=== PATIENT | female | born 1950 | race African-American/Black ===

== ENCOUNTER 2017-11-21 15:10 | Emergency (ER) | payer OTHER ==
--- NOTE | 2017-11-21 15:16 | PDOC ---
Rapid Medical Evaluation Time Seen by Provider: 11/21/17 15:15 Medical Evaluation: Allergies Allergy/AdvReac Type Severity Reaction Status Date / Time No Known Allergies Allergy Verified 11/21/17 15:14 11/21/17 15:15 The patient presents with a chief complaint of: arm/chest pain I have performed a brief in-person evaluation of this patient. Pertinent physical exam findings: vss I have ordered the following: ekg, labs The patient will proceed to the ED for further evaluation.
[2017-11-21 15:17] VITALS: TEMP 97.9; BMI 32.8
[2017-11-21] MEDS ORDERED: IBUPROFEN 400 MG TABLET (FP) PO ONE ×2 (16:05→16:23)
--- NOTE | 2017-11-21 16:18 | PDOC ---
History of Present Illness - General Chief Complaint: Pain Stated Complaint: SOB/PAIN LT ARM Time Seen by Provider: 11/21/17 15:15 History Source: Patient - History of Present Illness Associated Symptoms: denies: chest pain, diaphoresis, fever/chills Past History - Past Medical History Allergies/Adverse Reactions: Allergies Allergy/AdvReac Type Severity Reaction Status Date / Time No Known Allergies Allergy Verified 11/21/17 15:14 Home Medications: Ambulatory Orders Naproxen 500 mg PO BID #20 tablet 11/21/17 COPD: No Diabetes: Yes HTN: Yes Hypercholesterolemia: Yes - Immunization History Immunization Up to Date: Yes - Suicide/Smoking/Psychosocial Hx Smoking History: Never smoked Hx Alcohol Use: No Review of Systems - Review of Systems Constitutional: No: Chills, Fever Cardiac (ROS): No: Chest Pain, Lightheadedness ABD/GI: No: Nausea, Vomiting Musculoskeletal: Yes: Joint Pain, Joint Swelling *Physical Exam - Vital Signs Last Vital Signs Temp Pulse Resp BP Pulse Ox 97.9 F 110 H 18 127/69 98 11/21/17 15:14 11/21/17 15:14 11/21/17 15:14 11/21/17 15:14 11/21/17 15:14 - Physical Exam General Appearance: Yes: Appropriately Dressed. No: Apparent Distress HEENT: positive: Normal Voice Neck: positive: Supple Respiratory/Chest: positive: Lungs Clear, Normal Breath Sounds. negative: Respiratory Distress Cardiovascular: positive: Regular Rate, S1, S2 Extremity: positive: Swelling (minimal swelling to dorsum of left hand and wrist diffusely with significant tenderness to palpation, no erythema or increased warmth, NVI) Integumentary: positive: Dry, Warm Neurologic: positive: Fully Oriented, Alert, Normal Mood/Affect Heart Score/ECG Review - ECG Intrepretation Comment:: 11/21/17 16:30 Twelve-lead EKG was performed and reviewed by me. There is normal sinus rhythm with a normal rate. The axis is normal. The intervals are normal. There are no ST or T wave abnormalities. Impression: Normal twelve-lead EKG ED Treatment Course - LABORATORY CBC & Chemistry Diagram: 11/21/17 16:30 11/21/17 16:30 Medical Decision Making - Medical Decision Making 11/21/17 16:06 67-year-old female, history of IDDM, HTN, HLD, hypothyroid here w/ LUE pain. Patient states for the past 3 days she has had severe pain mostly to L hand and wrist, worse with range of motion of wrist. Has not taking anything for pain. No trauma or other obvious inciting factors. No h/o gout. No h/o similar symptoms. No f/c. ?sob w/ exertion, no CP, diaphoresis, palpitations, n/v. No known CAD. No recent cardiac w/u See exam LUE pain No trauma +swelling w/ tenderness to dorsum of hand/wrist Possible MSK, i.e arthritis, etc, unlikely gout, no e/o infxn -pain control -pt insistent upon xray -ekg/cxr/labs given ? sob 11/21/17 16:35 11/21/17 17:22 Labs unremarkable. Xrays neg. Pt better w/ motrin. Will dc w/ pain meds. Pt to f /u with PMD next week *DC/Admit/Observation/Transfer Diagnosis at time of Disposition: Left wrist pain - Discharge Dispostion Disposition: HOME Condition at time of disposition: Improved - Prescriptions Prescriptions: Naproxen 500 mg PO BID #20 tablet - Referrals Referrals: ON STAFF,NOT [Primary Care Provider] - - Patient Instructions Printed Discharge Instructions: DI for Wrist Pain Additional Instructions: Your ekg, xrays and labs were all normal The cause of your hand/wrist swelling is unclear at this time, but could be caused by muskuloskeletal causes such as arthritis or overuse injury. Take naproxen as prescribed and follow-up with your PMD next week for further evaluation - Post Discharge Activity
[2017-11-21 16:37] LABS: BASO % 0.9 % (0-2.0); EOS % 1.8 % (0-4.5); HEMATOCRIT 40.7 % (32.4-45.2); HEMOGLOBIN 13.4 GM/dL (10.7-15.3); LYMPH % 43.7 % (8-40); MCH 27.4 pg (25.7-33.7); MCHC 32.8 g/dl (32.0-36.0); MEAN CELL VOLUME 83.4 fl (80-96); MEAN PLT VOLUME 8.1 fl (7.5-11.1); NEUT % 46.6 % (42.8-82.8); PLATELET COUNT 385 K/MM3 (134-434); RBC 4.88 M/mm3 (3.60-5.2); RDW 14.7 % (11.6-15.6); WHITE BLOOD COUNT 10.5 K/mm3 (4.0-10.0)
[2017-11-21 16:52] LABS: INR 1.02 (0.83-1.09)
[2017-11-21 17:16] LABS: ALBUMIN 3.8 g/dl (3.4-5.0); ALK PHOS 172 U/L (45-117); ANION GAP 10 MMOL/L (8-16); BILIRUBIN,TOTAL 0.6 mg/dL (0.2-1); BLOOD UREA NITROGEN 29 mg/dL (7-18); CALCIUM 9.6 mg/dL (8.5-10.1); CHLORIDE 102 mmol/L (98-107); CO2 23 mmol/L (21-32); CREATININE 1.1 mg/dL (0.55-1.3); GLUCOSE,RANDOM 136 mg/dL (74-106); POTASSIUM 4.2 mmol/L (3.5-5.1); SGOT/AST 56 U/L (15-37); SGPT/ALT 59 U/L (13-61); SODIUM 135 mmol/L (136-145); TOT PROT 8.4 g/dl (6.4-8.2)
[2017-11-21 17:58] VITALS: BP 130/70; PULSE 75
--- NOTE | 2017-11-24 10:11 | EKG ---
Test Reason : Blood Pressure : / mmHG Vent. Rate : 095 BPM Atrial Rate : 095 BPM P-R Int : 142 ms QRS Dur : 094 ms QT Int : 336 ms P-R-T Axes : 056 -07 084 degrees QTc Int : 422 ms NORMAL SINUS RHYTHM MINIMAL VOLTAGE CRITERIA FOR LVH, MAY BE NORMAL VARIANT NONSPECIFIC T WAVE ABNORMALITY ABNORMAL ECG WHEN COMPARED WITH ECG OF 13-FEB-2013 16:28, NO SIGNIFICANT CHANGE WAS FOUND Confirmed by FREIDA SHAW MD ([id number]) on 11/24/2017 10:11:26 AM Referred By: Confirmed By:FREIDA SHAW MD
== END 2017-11-21 17:58 | disposition home or self-care (01) ==
LOC: JER 15:10
DX: M25.532 Pain in left wrist (principal); I10 Essential (primary) hypertension; E78.00 Pure hypercholesterolemia, unspecified; E11.9 Type 2 diabetes mellitus without complications; E03.9 Hypothyroidism, unspecified
CPT/HCPCS: 36415; 71045-TC-FY; 73110-TC-LR-FY; 73130-TC-LR-FY; 80053; 82550; 82553; 83880; 84484; 85025; 85610; 93005; 93010; 99285-25

== ENCOUNTER 2018-12-14 07:03 | Day surgery (SDC) | payer OTHER ==
[2018-12-13 13:13] VITALS: BMI 34.4
[2018-12-14 08:48] VITALS: TEMP 97.9
[2018-12-14 09:11] VITALS: PULSE 80
[2018-12-14 09:50] VITALS: BP 129/62
--- NOTE | 2018-12-17 14:10 | PATH ---
Surgical Pathology Report Patient Name: LUIS FELIPE RODRIGUEZ [facility]. Rec. #: [id number] /Age/Gender: 1950 (Age: 68) / F Account: [id number] Location: U-ENDOSCOPY Taken: 12/14/2018 Received: 12/14/2018 Reported: 12/17/2018 Physicians: Carlos Alberto Watson M.D. Specimen(s) Received A: SECOND PORTION DUODENUM AND DUODENAL BULB B: ANTRUM C: DISTAL ESOPHAGUS D: MID ESOPHAGUS E: MID TRANSVERSE COLON Clinical History Dysphagia, history of colon polyps Postoperative diagnosis: GERD, atrophic gastritis, esophageal stricture, colon polyp, diverticulosis Final Diagnosis A. DUODENUM, SECOND PORTION AND DUODENAL BULB, BIOPSY: DUODENAL MUCOSA WITH MILD ACUTE AND CHRONIC DUODENITIS. B. STOMACH ANTRUM, BIOPSY: GASTRIC ANTRAL MUCOSA WITH SEVERE CHRONIC ACTIVE GASTRITIS AND INTESTINAL METAPLASIA. NO DYSPLASIA IDENTIFIED. IMMUNOHISTOCHEMICAL STAIN FOR H. PYLORI IS POSITIVE (FEW). C. DISTAL ESOPHAGUS, BIOPSY: SQUAMOUS MUCOSA WITH CHANGES OF MILD REFLUX TYPE ESOPHAGITIS. D. MID ESOPHAGUS, BIOPSY: SQUAMOUS MUCOSA WITHOUT SIGNIFICANT PATHOLOGIC FINDINGS. E. MID TRANSVERSE COLON, POLYP, POLYPECTOMY: TUBULAR ADENOMA. Electronically Signed Carolina Parsons M.D. Gross Description A. Received in formalin, labeled "biopsy second portion duodenum and duodenal bulb" are 3 woods, irregular portions of soft tissue ranging from 0.4-0.5 cm. in greatest dimension. The specimens are submitted in toto in one cassette. B. Received in formalin, labeled "biopsy antrum" are 3 woods, irregular portions of soft tissue ranging from 0.3-0.4 cm. in greatest dimension. The specimens are submitted in toto in one cassette. C. Received in formalin, labeled "biopsy distal esophagus" are 4 woods, irregular portions of soft tissue ranging from 0.2-0.4 cm. in greatest dimension. The specimens are submitted in toto in one cassette. D. Received in formalin, labeled "biopsy mid esophagus" is a woods, irregular portion of soft tissue measuring 0.4 cm. in greatest dimension. The specimen is submitted in toto in one cassette. E. Received in formalin, labeled "polyp mid transverse colon" is a woods, polypoid portion of soft tissue measuring 0.6 cm. in greatest dimension. The specimen is submitted in toto in one cassette. DL12/14/2018 saudi12/14/2018
== END 2018-12-14 09:50 | disposition home or self-care (01) ==
LOC: JASU-ENDO 07:03
PROVIDERS: ATTEND Internal Medicine Gastroenterology
PROC: 0D748ZZ Dilation of Esophagogastric Junction, Via Natural or Artificial Opening Endoscopic (ICD-10-PCS; 2018-12-14)
PROC: 0D738ZZ Dilation of Lower Esophagus, Via Natural or Artificial Opening Endoscopic (ICD-10-PCS; 2018-12-14)
PROC: 0DB98ZX Excision of Duodenum, Via Natural or Artificial Opening Endoscopic, Diagnostic (ICD-10-PCS; 2018-12-14)
PROC: 0DB68ZX Excision of Stomach, Via Natural or Artificial Opening Endoscopic, Diagnostic (ICD-10-PCS; 2018-12-14)
PROC: 0DBL8ZX Excision of Transverse Colon, Via Natural or Artificial Opening Endoscopic, Diagnostic (ICD-10-PCS; principal; 2018-12-14 08:00)
DX: Z12.11 Encounter for screening for malignant neoplasm of colon (principal); K57.30 Diverticulosis of large intestine without perforation or abscess without bleeding; D12.3 Benign neoplasm of transverse colon; K64.8 Other hemorrhoids; K22.2 Esophageal obstruction; K29.80 Duodenitis without bleeding; K29.50 Unspecified chronic gastritis without bleeding; B96.81 Helicobacter pylori [H. pylori] as the cause of diseases classified elsewhere; K21.0 Gastro-esophageal reflux disease with esophagitis; I10 Essential (primary) hypertension; E11.9 Type 2 diabetes mellitus without complications; E66.01 Morbid (severe) obesity due to excess calories; Z86.010 Personal history of colon polyps
CPT/HCPCS: 88305-TC; 88342-TC

== ENCOUNTER 2023-11-08 07:55 | Emergency (ER) | payer OTHER ==
[2023-11-08 08:05] VITALS: RESP 16; TEMP 98.6; BMI 29.7
[2023-11-08 10:11] LABS: BASO % 0.6 % (0-2.0); EOS % 1.5 % (0-4.5); HEMATOCRIT 37.2 % (32.4-45.2); HEMOGLOBIN 12.2 GM/dL (10.7-15.3); LYMPH % 34.6 % (8-40); MCHC 32.8 g/dl (32.0-36.0); MEAN CELL VOLUME 82.3 fl (80-96); NEUT % 54.3 % (42.8-82.8); PLATELET COUNT 400 10^3/uL (134-434); RBC 4.52 M/mm3 (3.60-5.2); RDW 15.1 % (11.6-15.6); WHITE BLOOD COUNT 5.9 K/mm3 (4.0-10.0)
[2023-11-08 10:36] LABS: POTASSIUM 4.7 mmol/L (3.5-5.1)
[2023-11-08 10:38] LABS: CALCIUM 10.2 mg/dL (8.5-10.1)
[2023-11-08 10:39] LABS: ALBUMIN 3.8 g/dl (3.4-5.0); BLOOD UREA NITROGEN 21.2 mg/dL (7-18)
[2023-11-08 10:41] LABS: CREATININE 1.4 mg/dL (0.55-1.3)
[2023-11-08 10:43] LABS: BILIRUBIN,TOTAL 0.4 mg/dL (0.2-1); TOT PROT 7.9 g/dl (6.4-8.2)
[2023-11-08 13:00] LABS: EPI CELLS 9 /uL (0-25.1); HYALINE CASTS 0 /uL (0-3.1); URINE APPEARANCE CLEAR; URINE BACTERIA 84 /uL (0-1359); URINE BILIRUBIN NEGATIVE (NEGATIVE); URINE COLOR YELLOW; URINE GLUCOSE (UA) NEGATIVE (NEGATIVE); URINE KETONE NEGATIVE (NEGATIVE); URINE LEUK ESTERASE TRACE (NEGATIVE); URINE NITRITE NEGATIVE (NEGATIVE); URINE PROTEIN NEGATIVE (NEGATIVE); URINE RBC 6 /uL (0-23.9); URINE UROBILINOGEN 0.2 mg/dL (0.2-1.0); URINE WBC 12 /uL (0-25.8)
[2023-11-08] MEDS ORDERED: NITROFURANTOIN MACROCRYSTAL 50 MG CAPSULE (FP) ONE (14:18)
[2023-11-08] MEDS: NITROFURANTOIN MONOHYD/M-CRYST 100 MG CAPSULE PO ONE (14:20)
[2023-11-08 15:00] VITALS: BP 127/52; PULSE 76
== END 2023-11-08 15:00 | disposition home or self-care (01) ==
LOC: JER 07:55
DX: E11.649 Type 2 diabetes mellitus with hypoglycemia without coma (principal); Z79.4 Long term (current) use of insulin
CPT/HCPCS: 36415; 71045-TC-FY; 80053; 81003; 82962; 85025; 87077; 87086; 99284-25

== ENCOUNTER 2024-01-07 15:02 | Observation (INO) | payer OTHER ==
[2024-01-07 15:06] VITALS: RESP 18
[2024-01-07] MEDS ORDERED: ACETAMINOPHEN INJECTION 100 ML ONE (15:41)
[2024-01-07] MEDS ORDERED: MAG HYDROX/AL HYDROX/SIMETH 30 ML UNIT-DOSE CUP ONE (15:41)
[2024-01-07] MEDS ORDERED: FAMOTIDINE 20 MG/50 ML IVPB 20 MG/50 ML MG IVPB ONE (15:42)
[2024-01-07 16:13] LABS: BASO % 0.8 % (0-2.0); EOS % 1.8 % (0-4.5); HEMOGLOBIN 12.3 GM/dL (10.7-15.3); MCH 26.7 pg (25.7-33.7); MCHC 32.4 g/dl (32.0-36.0); MEAN CELL VOLUME 82.6 fl (80-96); MEAN PLT VOLUME 7.9 fl (7.5-11.1); MONO % 6.3 % (3.8-10.2); NEUT % 50.1 % (42.8-82.8); PLATELET COUNT 382 10^3/uL (134-434); RDW 15.2 % (11.6-15.6); WHITE BLOOD COUNT 9.3 K/mm3 (4.0-10.0)
[2024-01-07] MEDS: FAMOTIDINE 20 MG/50 ML IVPB 20 MG/50 ML MG IVPB ONE (16:20)
[2024-01-07] MEDS: MAG HYDROX/AL HYDROX/SIMETH 30 ML UNIT-DOSE CUP PO ONE (16:20)
[2024-01-07] MEDS: ACETAMINOPHEN 1000 MG/100 ML BAG IVPB ONE (16:21)
[2024-01-07 16:48] LABS: POTASSIUM 4.3 mmol/L (3.5-5.1)
[2024-01-07 16:50] LABS: BLOOD UREA NITROGEN 29.9 mg/dL (7-18)
[2024-01-07 16:51] LABS: MAGNESIUM 1.9 mg/dL (1.8-2.4)
[2024-01-07 16:53] LABS: CREATININE 1.7 mg/dL (0.55-1.3)
[2024-01-07 16:55] LABS: BILIRUBIN,TOTAL 0.3 mg/dL (0.2-1); TOT PROT 7.8 g/dl (6.4-8.2)
[2024-01-07 16:56] LABS: INR 1.08 (0.83-1.09); PROTHROMBIN TIME (PATIENT) 12.4 SEC (9.7-13.0)
[2024-01-07 16:59] LABS: N-TERMINAL BNP 111.3 pg/ml (5-125)
[2024-01-07 16:59] LABS: ACTIVATED PTT 31.5 SECONDS (25.2-36.5)
[2024-01-07] MEDS: SODIUM CHLORIDE 0.9% 500 ML INFUS.BAG IV ONE (17:07)
[2024-01-07 18:12] LABS: PH,URINE 6.5 (5.0-8.0); URINE APPEARANCE CLEAR; URINE BILIRUBIN NEGATIVE (NEGATIVE); URINE COLOR YELLOW; URINE GLUCOSE (UA) NEGATIVE (NEGATIVE); URINE KETONE NEGATIVE (NEGATIVE); URINE LEUK ESTERASE NEGATIVE (NEGATIVE); URINE NITRITE NEGATIVE (NEGATIVE); URINE PROTEIN NEGATIVE (NEGATIVE); URINE UROBILINOGEN 0.2 mg/dL (0.2-1.0)
[2024-01-07] MEDS: SODIUM CHLORIDE 0.45% 1,000 ML IV SCH (22:07)
[2024-01-07] MEDS: HEPARIN NA (PORCINE) 5,000 UNITS/ML 1ML VIAL SQ SCH (22:07)
[2024-01-07] MEDS: ROSUVASTATIN CA 20 MG TABLET PO SCH (22:08)
[2024-01-07] MEDS ORDERED: MAG HYDROX/AL HYDROX/SIMETH 30 ML UNIT-DOSE CUP PO PRN (22:22)
[2024-01-07] MEDS ORDERED: ACETAMINOPHEN 325 MG TABLET (FP) PO PRN (22:25)
[2024-01-08] MEDS: LEVOTHYROXINE NA 125 MCG TABLET (FP) PO SCH (06:14)
[2024-01-08] MEDS: INSULIN ASPART SLIDING SCALE (NOVOLOG) 1 VIAL SQ SCH (06:49)
[2024-01-08 07:33] LABS: HEMATOCRIT 37.5 % (32.4-45.2); HEMOGLOBIN 11.9 GM/dL (10.7-15.3); MCH 26.8 pg (25.7-33.7); MCHC 31.8 g/dl (32.0-36.0); MEAN CELL VOLUME 84.1 fl (80-96); PLATELET COUNT 344 10^3/uL (134-434); RBC 4.46 M/mm3 (3.60-5.2); RDW 15.1 % (11.6-15.6); WHITE BLOOD COUNT 8.2 K/mm3 (4.0-10.0)
[2024-01-08 07:46] LABS: POTASSIUM 4.7 mmol/L (3.5-5.1)
[2024-01-08 07:48] LABS: CALCIUM 10.2 mg/dL (8.5-10.1)
[2024-01-08 07:49] LABS: MAGNESIUM 2.1 mg/dL (1.8-2.4)
[2024-01-08 07:52] LABS: CREATININE 1.5 mg/dL (0.55-1.3); PHOSPHOROUS 3.7 mg/dL (2.5-4.9)
[2024-01-08] MEDS: CHOLECALCIFEROL (VIT D3) 1,000 UNIT (25 MCG) TABLET PO SCH (09:45)
[2024-01-08] MEDS: LISINOPRIL 5 MG TABLET PO SCH (09:45)
[2024-01-08] MEDS: EZETIMIBE 10 MG TABLET (FP) PO SCH (09:45)
[2024-01-08] MEDS: PANTOPRAZOLE 40 MG TABLET PO SCH (09:45)
[2024-01-08] MEDS ORDERED: EZETIMIBE 10 MG TABLET (FP) PO SCH (10:00)
[2024-01-08 16:15] VITALS: BP 116/54; PULSE 76; TEMP 98.9
[2024-01-08 16:17] VITALS: BMI 32.0
[2024-01-08] MEDS ORDERED: INSULIN ASPART SLIDING SCALE (NOVOLOG) 1 VIAL SQ SCH (22:07)
== END 2024-01-08 16:08 | disposition home or self-care (01) ==
LOC: JER 15:02 → JERBED 17:32 → J4S 20:14
PROVIDERS: ADMIT Internal Medicine; ATTEND Internal Medicine
PROC: 3E033GC Introduction of Other Therapeutic Substance into Peripheral Vein, Percutaneous Approach (ICD-10-PCS; principal; 2024-01-07)
PROC: 3E033GC Introduction of Other Therapeutic Substance into Peripheral Vein, Percutaneous Approach (ICD-10-PCS; 2024-01-07)
PROC: 3E023GC Introduction of Other Therapeutic Substance into Muscle, Percutaneous Approach (ICD-10-PCS; 2024-01-07)
PROC: 3E0337Z Introduction of Electrolytic and Water Balance Substance into Peripheral Vein, Percutaneous Approach (ICD-10-PCS; 2024-01-07)
DX: N17.9 Acute kidney failure, unspecified (principal); E11.9 Type 2 diabetes mellitus without complications; I10 Essential (primary) hypertension; R10.13 Epigastric pain; N28.1 Cyst of kidney, acquired; E03.9 Hypothyroidism, unspecified; R01.1 Cardiac murmur, unspecified; K44.9 Diaphragmatic hernia without obstruction or gangrene; K21.9 Gastro-esophageal reflux disease without esophagitis; K22.9 Disease of esophagus, unspecified; E78.5 Hyperlipidemia, unspecified; R07.9 Chest pain, unspecified
CPT/HCPCS: 0241U-QW; 36415; 71046-TC-FY; 80048; 80053; 81003; 82962; 83690; 83735; 83880; 84100; 84443; 84484; 85025; 85027; 85610; 85730; 87086; 87186; 93005; 93010; 93306-TC; 96365; 96372; 99285-25; G0378; J0131; J1644

== ENCOUNTER 2024-04-05 05:31 | Day surgery (SDC) | payer OTHER ==
[2024-04-03 12:59] VITALS: BMI 27.6
[2024-04-05 10:05] VITALS: BP 116/51; PULSE 73; RESP 16; TEMP 98
== END 2024-04-05 10:17 | disposition home or self-care (01) ==
LOC: JASU-ENDO 05:31
PROVIDERS: ATTEND Student in an Organized Health Care Education/Training Program
PROC: 0DBL8ZX Excision of Transverse Colon, Via Natural or Artificial Opening Endoscopic, Diagnostic (ICD-10-PCS; 2024-04-05)
PROC: 0DBH8ZX Excision of Cecum, Via Natural or Artificial Opening Endoscopic, Diagnostic (ICD-10-PCS; principal; 2024-04-05 08:30)
DX: Z86.0100 Personal history of colon polyps, unspecified (principal); D12.0 Benign neoplasm of cecum; D12.3 Benign neoplasm of transverse colon
CPT/HCPCS: 82962; 88305-TC; 88342-TC

== ENCOUNTER 2024-05-02 08:46 | Emergency (ER) | payer OTHER ==
[2024-05-02 08:56] VITALS: BP 142/47; PULSE 67; RESP 16; TEMP 98.4; BMI 28.1
[2024-05-02 10:17] LABS: ABSOLUTE IMMATURE GRANULOCYTES 0.03 x10^3/uL (0.0-0.031); BASOPHILS # 0.03 x10^3/uL (0.01-0.08); EOSINOPHIL % 2.2 % (0.7-5.8); EOSINOPHILS # 0.16 x10^3/uL (0.04-0.36); HEMATOCRIT 34.2 % (34.1-44.9); HEMOGLOBIN 10.9 g/dL (11.2-15.7); MCHC 31.9 g/dl (32.2-35.5); MEAN CELL VOLUME 84.9 fl (79.4-94.8); MEAN PLT VOLUME 9.7 fl (9.4-12.3); MONOCYTE # 0.46 x10^3/uL (0.24-0.86); MONOCYTE % 6.4 % (4.7-12.5); PLATELET COUNT # 320 x10^3/uL (182-369); RDW 15.5 % (12.4-16.6)
[2024-05-02 10:18] LABS: PH,URINE 6.5 (5.0-8.0); URINE APPEARANCE CLEAR; URINE BILIRUBIN NEGATIVE (NEGATIVE); URINE COLOR YELLOW; URINE GLUCOSE (UA) NEGATIVE (NEGATIVE); URINE KETONE NEGATIVE (NEGATIVE); URINE LEUK ESTERASE NEGATIVE (NEGATIVE); URINE NITRITE NEGATIVE (NEGATIVE); URINE PROTEIN NEGATIVE (NEGATIVE); URINE UROBILINOGEN 0.2 mg/dL (0.2-1.0)
[2024-05-02 10:37] LABS: POTASSIUM 5.1 mmol/L (3.5-5.1)
[2024-05-02 10:39] LABS: CALCIUM 9.8 mg/dL (8.5-10.1); INR 1.13 (0.83-1.09); PROTHROMBIN TIME (PATIENT) 12.4 SEC (9.7-13.0)
[2024-05-02 10:40] LABS: ALBUMIN 3.7 g/dl (3.4-5.0); BLOOD UREA NITROGEN 23.5 mg/dL (7-18); MAGNESIUM 1.6 mg/dL (1.8-2.4)
[2024-05-02 10:42] LABS: ACTIVATED PTT 28.9 SECONDS (25.2-36.5)
[2024-05-02 10:43] LABS: CREATININE 1.4 mg/dL (0.55-1.3)
[2024-05-02 10:44] LABS: BILIRUBIN,TOTAL 0.4 mg/dL (0.2-1); TOT PROT 7.3 g/dl (6.4-8.2)
== END 2024-05-02 12:05 | disposition home or self-care (01) ==
LOC: JER 08:46
DX: R55 Syncope and collapse (principal); R42 Dizziness and giddiness
CPT/HCPCS: 0241U-QW; 36415; 71045-TC-FY; 80053; 81003; 82962; 83735; 84484; 85025; 85610; 85730; 87086; 87186; 93005; 93010; 99285-25

== ENCOUNTER → 2024-05-16 | Day surgery (SDC) | payer OTHER | END | disposition home or self-care (01) | LOC: FMAMMOTONE 07:51 | PROVIDERS: ATTEND Internal Medicine | PROC: 0HBU3ZX Excision of Left Breast, Percutaneous Approach, Diagnostic (ICD-10-PCS; principal; 2024-05-16) | DX: Z53.8 Procedure and treatment not carried out for other reasons (principal) | CPT/HCPCS: 19081 ==